=== PATIENT | male | born 1985 | race African-American/Black ===

== ENCOUNTER 2023-06-05 07:22 | Emergency (ER) | payer OTHER ==
[~2023-06-05] VITALS: Ht 170.2 cm; Wt 76.4 kg
[2023-06-05 08:05] VITALS: BP 155/91; PULSE 80; RESP 18; TEMP 97.6; O2SAT 96
== END 2023-06-05 09:23 | disposition home or self-care (01) ==
LOC: ER 07:22
DX: M23.92 Unspecified internal derangement of left knee (principal)
CPT/HCPCS: 73562